=== PATIENT | male | born 1945 | race Caucasian/White ===

== ENCOUNTER 2020-01-09 04:53 | Inpatient (IN) ==
--- NOTE | 2019-12-25 15:06 | PAT Medication Instructions ---
Medication Instructions Date of Service December 25, 2019 Home Medications Medications amlodipine 5 mg tablet 5 mg PO HS ascorbate calcium (vitamin C) 500 mg tablet 500 mg PO BID aspirin 81 mg tablet,delayed release 81 mg PO HS atorvastatin 10 mg tablet 10 mg PO 3XWK cinnamon bark 500 mg capsule 1,500 mg PO BID coenzyme Q10 100 mg capsule 100 mg PO QAM glucosamine sulfate 500 mg tablet 500 mg PO BID insulin glargine 100 unit/mL (3 mL) subcutaneous pen 35 units SQ BID magnesium 250 mg tablet 250 mg PO BID melatonin 5 mg capsule 10 mg PO HS metformin 500 mg tablet,extended release 24 hr 500 mg PO BID metoprolol succinate 50 mg tablet,extended release 24 hr 50 mg PO BID mometasone 0.1 % topical cream 1 appln TOP BID PRN multivitamin with minerals 1 tab PO BID omega-3 acid ethyl esters 1 gram capsule 4 cap PO DAILY tamsulosin 0.4 mg capsule 0.4 mg PO QPM turmeric 400 mg capsule 400 mg PO DAILY PRN vitamin E (dl, acetate) 400 unit capsule 400 units PO BID Lactobacillus acidophilus [Acidophilus] 1 tab PO DAILY alum-mag hydroxide-simeth [Mylanta Maximum Strength] 10 ml PO HS PRN coconut oil 2,000 mg PO BID cranberry 500 mg PO BID famotidine 20 mg PO DAILY PRN hydrochlorothiazide 12.5 mg PO QAM qkgldp-qenhntew-sbjybox [Creon] 2 - 3 cap PO UD PRN qqvhdv-cvhwbcxr-yhzictz [Creon] 3 - 4 cap PO TID losartan 25 mg PO QAM multivitamin 1 tab PO QAM potassium gluconate 595 mg PO BID psyllium husk [Metamucil] 3.2 g PO BID vitamin B complex 1 tab PO BID STOP taking 2 weeks before surgery coconut oil 2,000 mg PO BID cranberry 500 mg PO BID turmeric 400 mg capsule 400 mg PO DAILY PRN vitamin E (dl, acetate) 400 unit capsule 400 units PO BID omega-3 acid ethyl esters 1 gram capsule 4 cap PO DAILY cinnamon bark 500 mg capsule 1,500 mg PO BID coenzyme Q10 100 mg capsule 100 mg PO QAM glucosamine sulfate 500 mg tablet 500 mg PO BID STOP taking 24 hours before surgery mometasone 0.1 % topical cream 1 appln TOP BID PRN DO NOT take the morning of surgery multivitamin 1 tab PO QAM potassium gluconate 595 mg PO BID psyllium husk [Metamucil] 3.2 g PO BID vitamin B complex 1 tab PO BID losartan 25 mg PO QAM hydrochlorothiazide 12.5 mg PO QAM rhaxsf-uscjmlyp-efoxxdf [Creon] 2 - 3 cap PO UD PRN qdyaxe-guatltkn-gtpqqjj [Creon] 3 - 4 cap PO TID Lactobacillus acidophilus [Acidophilus] 1 tab PO DAILY multivitamin with minerals 1 tab PO BID metformin 500 mg tablet,extended release 24 hr 500 mg PO BID magnesium 250 mg tablet 250 mg PO BID ascorbate calcium (vitamin C) 500 mg tablet 500 mg PO BID Take morning of surgery With a small sip of water, OTHERWISE NOTHING TO EAT OR DRINK AFTER MIDNIGHT: famotidine 20 mg PO DAILY PRN metoprolol succinate 50 mg tablet,extended release 24 hr 50 mg PO BID Take evening before surgery alum-mag hydroxide-simeth [Mylanta Maximum Strength] 10 ml PO HS PRN kdthug-nifmybsa-bogeutc [Creon] 3 - 4 cap PO TID potassium gluconate 595 mg PO BID psyllium husk [Metamucil] 3.2 g PO BID vitamin B complex 1 tab PO BID tamsulosin 0.4 mg capsule 0.4 mg PO QPM multivitamin with minerals 1 tab PO BID metoprolol succinate 50 mg tablet,extended release 24 hr 50 mg PO BID metformin 500 mg tablet,extended release 24 hr 500 mg PO BID magnesium 250 mg tablet 250 mg PO BID melatonin 5 mg capsule 10 mg PO HS insulin glargine 100 unit/mL (3 mL) subcutaneous pen 35 units SQ BID atorvastatin 10 mg tablet 10 mg PO 3XWK aspirin 81 mg tablet,delayed release 81 mg PO HS amlodipine 5 mg tablet 5 mg PO HS ascorbate calcium (vitamin C) 500 mg tablet 500 mg PO BID Insulin Dependent Diabetic Patients * Test your blood sugar the morning of surgery * If Blood Sugar is GREATER THAN 150, take HALF of your regular dose of: insulin glargine 100 unit/mL (3 mL) subcutaneous pen (17 units) * If Blood Sugar is LESS THAN 150, DO NOT TAKE ANY: insulin glargine 100 unit/mL (3 mL) subcutaneous pen * Other Notes If you have any questions please call us at [phone] or [phone] or [phone] or [phone]
--- NOTE | 2019-12-26 09:33 | Anesthesiology Consultation ---
Date of Service December 26, 2019 Assessment & Plan (1) Encounter for pre-operative examination: Chart Review Chart Review: Pending: Refer to Additional Notes / Consult section (PCP response to preop labs ) and Patient seen in Pre Admission Testing Cardio note- 09/18/19= Results of stress test reviewed. "I see no cardiac contraindications to proceeding on with planned right hip replacement. I would recommend perioperative cardiac monitoring." Pt should take Toprol XL AM of surgery Anemia and mildly elevated INR (not on blood thinners) noted on pre op labs. Note sent to PCP- awaiting response History Surgery Operation Date: 01/09/20 12:45 Proposed Procedures p Right Total Hip Arthroplasty - Jose Vences MD Height/Weight Height: 5 ft 11 in Weight: 117.1 kg Allergies Allergy/AdvReac Type Severity Reaction Status Date / Time Penicillins Allergy Unknown UNKNOWN - Verified 12/19/19 14:07 as a child Medications Home Medications Medication Instructions Recorded Confirmed Last Taken amlodipine 5 mg tablet 5 mg PO HS 12/13/19 12/19/19 Unknown ascorbate calcium (vitamin C) 500 500 mg PO BID 12/13/19 12/19/19 Unknown mg tablet aspirin 81 mg tablet,delayed 81 mg PO HS 12/13/19 12/19/19 Unknown release atorvastatin 10 mg tablet 10 mg PO 3XWK 12/13/19 12/19/19 Unknown blood-glucose meter #1 ea 12/13/19 12/13/19 Unknown cinnamon bark 500 mg capsule 1,500 mg PO BID 12/13/19 12/19/19 Unknown coenzyme Q10 100 mg capsule 100 mg PO QAM 12/13/19 12/19/19 Unknown glucosamine sulfate 500 mg tablet 500 mg PO BID 12/13/19 12/19/19 Unknown insulin glargine 100 unit/mL (3 35 units SQ BID ml 12/13/19 12/19/19 Unknown mL) subcutaneous pen magnesium 250 mg tablet 250 mg PO BID tab 12/13/19 12/19/19 Unknown melatonin 5 mg capsule 10 mg PO HS cap 12/13/19 12/19/19 Unknown metformin 500 mg tablet,extended 500 mg PO BID 12/13/19 12/19/19 Unknown release 24 hr metoprolol succinate 50 mg 50 mg PO BID 12/13/19 12/19/19 Unknown tablet,extended release 24 hr mometasone 0.1 % topical cream 1 appln TOP BID PRN gm 12/13/19 12/19/19 Unknown multivitamin with minerals 1 tab PO BID tab 12/13/19 12/19/19 Unknown omega-3 acid ethyl esters 1 gram 4 cap PO DAILY cap 12/13/19 12/19/19 Unknown capsule tamsulosin 0.4 mg capsule 0.4 mg PO QPM cap 12/13/19 12/19/19 Unknown turmeric 400 mg capsule 400 mg PO DAILY PRN cap 12/13/19 12/19/19 Unknown vitamin E (dl, acetate) 400 unit 400 units PO BID cap 12/13/19 12/19/19 Unknown capsule Lactobacillus acidophilus 1 tab PO DAILY 12/19/19 12/19/19 Unknown [Acidophilus] alum-mag hydroxide-simeth [Mylanta 10 ml PO HS PRN 12/19/19 12/19/19 Unknown Maximum Strength] coconut oil 2,000 mg PO BID 12/19/19 12/19/19 Unknown cranberry 500 mg PO BID 12/19/19 12/19/19 Unknown famotidine 20 mg PO DAILY PRN 12/19/19 12/19/19 Unknown hydrochlorothiazide 12.5 mg PO QAM 12/19/19 12/19/19 Unknown xjyflz-rerefhnf-vutpzzd [Creon] 2 - 3 cap PO UD PRN 12/19/19 12/19/19 Unknown ytfgxd-mjpbclhh-nycjzql [Creon] 3 - 4 cap PO TIDM 12/19/19 12/19/19 Unknown losartan 25 mg PO QAM 12/19/19 12/19/19 Unknown multivitamin 1 tab PO QAM 12/19/19 12/19/19 Unknown potassium gluconate 595 mg PO BID 12/19/19 12/19/19 Unknown psyllium husk [Metamucil] 3.2 g PO BID 12/19/19 12/19/19 Unknown vitamin B complex 1 tab PO BID 12/19/19 12/19/19 Unknown Past Medical History Medical History (Updated 12/26/19 @ 10:14 by Missy Sewell PA-C) BPH (benign prostatic hyperplasia) CKD (chronic kidney disease) stage 3, GFR 30-59 ml/min Mild Diabetes mellitus, type 2 since Whipple procedure- glucose controlled- Hgb A1C 7.1 (11/13/19) GERD (gastroesophageal reflux disease) CONTROLLED WITH PEPCID Hx of brachytherapy Hyperlipidemia Hypertension Obesity Osteoarthritis Pancreatic cancer 2009- S/P WHIPPLE PROCEDURE- S/P CHEMO AND XRT- NO CURRENT ISSUES- FOLLOWS WITH HEME Prostate cancer s/P BRACHYTHERAPY 11/2018 (per records) Renal cyst Pt has no recollection of dx details Sleep apnea hx -- no problems since weightloss. Exercise / Class Metabolic Activity III < 4 Walking/Shop/Light housework (LIMITED ACTIVITY SECONDARY TO HIP PAIN- AMBULATES WITH WALKER- NO SOB OR CHEST PAIN ) Past Family History Family History Other Cancer Diabetes Hypertension No family history of adverse response to anesthesia Past Surgical History Surgical History (Updated 12/26/19 @ 10:14 by Missy Sewell PA-C) H/O hernia repair multiple hernia surgeries with mesh. History of appendectomy History of cardiac cath nonobstructive CAD- 1996 (per cardio note) History of cholecystectomy History of colonoscopy History of endoscopic sinus surgery History of ERCP History of esophagogastroduodenoscopy (EGD) History of pancreatic surgery Whipple procedure History of tonsillectomy History of vascular access device Port placement for chemo Past Anesthesia History No Hx of Anesthesia Complications and No Family Hx of Anesthesia Complications History of PONV No Hx of PONV and Hx of Motion Sickness (NOTED WITH AMUSEMENT RIDES ) Social History Smoking Status: Never smoker Do You Dip or Chew Tobacco: No Hx Alcohol Use: No Hx Substance Use: No substance use type: does not use Review of Systems Patient denies chest pain, shortness of breath, dyspnea on exertion, reflux, cough, wheezing, palpitations. Mild nasal congestion and sinus pressure for past several months- occ use of nasal spray- symptoms currently controlled and stable Hx of blood transfusion with chemo in 2010 Physical Exam Vital Signs VITALS BP 145/81 P 64 TEMP 97.6 SP02 98% RESP 16 Constitutional no acute distress ENMT Mouth: no TMJ abnormality Thyromental Distance: > or= 3.5 Finger Breadths (3.5) Mallampati Class: II Mouth / Teeth: 1. Missing 2. Missing 3. Missing 4. Missing Chipped molar Neck neck extension not limited Respiratory normal respiratory effort; no respiratory distress Auscultation: lungs clear to auscultation bilaterally; no wheezes Cardiovascular Rate/Rhythm: regular rate and regular rhythm Vessels: no carotid bruit Musculoskeletal Spine: no pain with cervical ROM Neurologic moves all extremities Psychiatric Orientation: alert Testing Laboratory Results 12/26/19 09:56 12/26/19 09:56 PT 11.8 Seconds (9.0-12.0) 12/26/19 09:56 INR 1.2 (0.9-1.1) H 12/26/19 09:56 APTT 30.8 Seconds (21.0-31.0) 12/26/19 09:56 Blood Type A Positive 12/26/19 09:56 Antibody Screen NEGATIVE 12/26/19 09:56 Electrocardiogram Date: 07/25/19 Findings: + NSR @ (72) Septal infarct: age undetermined (pt had subsequent ECHO and stress test with no signs of ischemia) Chest X-Ray Date: 12/26/19 Findings: + NAD Echocardiogram Date: 07/26/19 EF: 55% LV Function: normal RWMA: + none Four chamber cardiac dilation. Borderline dilation of ascending aorta at 4cm. +LVH. Mild MV, PV, TV insufficiency. Perhaps mild pulm HTN - pulm artery pressure estimated at 36mmHg. Stress Test Date: 09/18/19 Type: nuclear (lexiscan ) Normal myocardial perfusion without evidence of induced ischemia. Normal wall motion and thickening. Normal LV EF post stress 59%
--- NOTE | 2019-12-26 10:37 | XRay Report ---
XR chest Pre-admission PA/Lat CLINICAL HISTORY: pat preoperative evaluation COMPARISON STUDY: No previous studies for comparison. FINDINGS: The bones soft tissues and hemidiaphragms are normal. The cardiomediastinal silhouette is n ormal. The lungs are clear. The pulmonary vasculature is normal. IMPRESSION: Negative chest. ACT 112: Negative or not required by law. The above report was generated using voice recognition software. It may contain grammatical, syntax or spelling errors. Electronically signed by: Adelfo Christensen M.D. 12/26/2019 10:36 AM
[2019-12-26 11:10] LABS: INR 1.2 (0.9-1.1); Partial Thromboplastin Ratio 1.1; Partial Thromboplastin Time 30.8 Seconds (21.0-31.0); Prothrombin Time 11.8 Seconds (9.0-12.0)
[2019-12-26 11:50] LABS: Basophils # (auto) 0.03 K/uL (0-0.2); Basophils % (auto) 0.6 %; Eosinophils # (auto) 0.19 K/uL (0-0.5); Eosinophils % (auto) 4.1 %; Hematocrit (blood only) 32.8 % (42-52); Hemoglobin 11.1 g/dL (14.0-18.0); Immature Granulocytes # (auto) 0.02 K/uL (0.00-0.02); Immature Granulocytes % (auto) 0.4 %; Lymphocytes # (auto) 1.02 K/uL (1.2-3.4); Lymphocytes % (auto) 21.8 %; Mean Corpuscular Hemoglobin 30.2 pg (25-34); Mean Corpuscular Hgb Conc 33.8 g/dL (32-36); Mean Corpuscular Volume 89.1 fL (80-100); Mean Platelet Volume 9.9 fL (7.4-10.4); Monocytes # (auto) 0.48 K/uL (0.11-0.59); Monocytes % (auto) 10.3 %; Neutrophils # (auto) 2.94 K/uL (1.4-6.5); Neutrophils % (auto) 62.8 %; Platelet Count 146 K/uL (130-400); RDW Coefficient of Variation 13.1 % (11.5-14.5); RDW Standard Deviation 42.8 fL (36.4-46.3); Red Blood Count 3.68 M/uL (4.7-6.1); White Blood Count 4.68 K/uL (4.8-10.8)
[2019-12-26 11:58] LABS: BUN Creatinine Ratio 25.5 (10-20); Calcium 9.4 mg/dl (8.5-10.1); Creatinine Clr Calc Pharmacy 65.9 ml/min; Est GFR (African American) 64.2; Est GFR (Non-African American) 55.4; Potassium 4.5 mmol/L (3.5-5.1)
[2020-01-09] MEDS ORDERED: GABAPENTIN 300 MG CAP PO SCH (06:00)
[2020-01-09] MEDS ORDERED: ACETAMINOPHEN 500 MG TAB PO SCH (06:00)
[2020-01-09] MEDS ORDERED: FAMOTIDINE 20 MG TAB PO SCH (06:00)
[2020-01-09] MEDS ORDERED: METOCLOPRAMIDE HCL 10 MG TABLET PO SCH (06:00)
[2020-01-09] MEDS ORDERED: BUPIVACAINE LIPOSOME/PF 266 MG, BUPIVACAINE/EPINEPHRINE 50 ML, SODIUM CHLORIDE 0.9% 30 ... INFIL SCH (06:00)
[2020-01-09] MEDS ORDERED: TRANEXAMIC ACID 1,000 MG **IV Pre-op IV SCH (06:00)
[2020-01-09] MEDS ORDERED: LR 60ML/HR IV SCH (06:00)
[2020-01-09] MEDS ORDERED: CEFAZOLIN 2000MG 2,000 MG/15 ML SYR IV SCH (06:00)
[2020-01-09] MEDS ORDERED: LR 500ML BOLUS, THEN 15ML/HR IV SCH (06:00)
[2020-01-09] MEDS ORDERED: BUPIVACAINE 0.5 % 5 MG/1 ML PF 10ML VIAL ONE (06:26)
[2020-01-09] MEDS ORDERED: BUPIVACAINE/EPINEPHRINE 0.5% MPF 1:200,000 10 ML VIAL ONE (06:37)
[2020-01-09] MEDS ORDERED: BACITRACIN INJ 50,000 UNIT VIAL ONE (06:37)
[2020-01-09] MEDS ORDERED: MoRPHine SULFATE PF 1 MG/ML 10 ML AMP/VIAL ONE (06:42)
[2020-01-09] MEDS ORDERED: LIDOCAINE HCL 2% 2 ML VIAL/AMP(20MG/ML) INFIL ONE (06:42)
[2020-01-09] MEDS ORDERED: PROPOFOL IV EMULSION 10 MG/ML 20 ML VIAL IV ONE (06:42)
[2020-01-09] MEDS ORDERED: MIDAZOLAM HCL 1 MG/ML 2ML VIAL ONE (06:42)
--- NOTE | 2020-01-09 06:56 | History & Physical Bridge Note ---
Date of Service January 09, 2020 History & Physical Bridge Note I have examined the patient, reviewed the History & Physical and in the interval since the performance of the History & Physical I have noted the following changes of clinical significance: no changes noted
[2020-01-09] MEDS ORDERED: NALBUPHINE HCL INJ 10 MG/ML AMP IV PRN (07:14)
[2020-01-09] MEDS ORDERED: NALOXONE HCL 1 MG in SODIUM CHLORIDE 0.9% 1000ML 1,000 ML IV PRN (07:14)
[2020-01-09] MEDS ORDERED: DiphenhydrAMINE HCL 50 MG/ML VIAL IV PRN (07:14)
[2020-01-09] MEDS ORDERED: ePHEDrine sulfate 50 MG/ML AMP IV PRN (07:14)
[2020-01-09] MEDS ORDERED: ONDANSETRON INJ 2 MG/ML 2 ML VIAL IV PRN (07:14)
[2020-01-09] MEDS ORDERED: NALOXONE HCL 0.4 MG/1 ML VIAL/CARP IV PRN ×2 (07:14→09:32)
[2020-01-09] MEDS ORDERED: MoRPHine SULFATE PF 1 MG/ML 10 ML AMP/VIAL INT SPINAL ONE (07:14)
[2020-01-09] MEDS ORDERED: NALOXONE HCL 0.08 MG in SYRINGE 1.8 ML IV PRN (07:14)
[2020-01-09] MEDS ORDERED: LACTATED RINGER'S 500 ML IV PRN (07:14)
[2020-01-09] MEDS ORDERED: SODIUM CHLORIDE 0.9% 1000ML 1,000 ML IV SCH (07:15)
[2020-01-09] MEDS ORDERED: DC INTRASPINAL MORPHINE SCH (07:15)
[2020-01-09] MEDS ORDERED: NO NARCOTICS OR SEDATIVES SCH (07:15)
[2020-01-09] MEDS ORDERED: ePHEDrine sulfate 50 MG/ML SYR ONE (07:47)
[2020-01-09] MEDS ORDERED: PHENYLEPHRINE 100MCG/ML 5ML SYR ONE (07:47)
[2020-01-09] MEDS ORDERED: PHENYLEPHRINE HCL 10 MG/ML VIAL ONE (08:04)
--- NOTE | 2020-01-09 08:35 | Post Operative Brief Note ---
PG Immediate Post Op with CF Date of Surgery January 09, 2020 Pre & Post Diagnosis Operation Date: 01/09/20 07:00 Pre-Op Diagnosis: Right Hip Advanced Degenerative Joint Disease Post-Op Diagnosis: Right Hip Advanced Degenerative Joint Disease I identified the patient and participated in the time-out.: Yes Procedure Operation Date: 01/09/20 07:00 Actual Procedures p Right Total Hip Arthroplasty--Uncemented(Right) - Jose Vences MD Surgeon Jose Vences MD German Tutor Johanna, PAC Estimated Blood Loss 200 Findings Consistent with Post-Op Diagnosis Fluids 1300 cc Specimens Specimen Description: A. Right Femoral Head Drains Torres Catheter (A 16 Occitan torres catheter was inserted by OSMANY Jimenes, without difficulty, clear yellow urine obtained, output to be monitored by Anesthesia.) Anesthesia Type Spinal MAC Complications none Disposition Accompanied Patient To Recovery: Yes Disposition: Recovery Room
--- NOTE | 2020-01-09 09:19 | Anesthesiology Progress Note ---
Date of Service January 09, 2020 Anesthesia Post Procedure Vital Signs Vital Signs: Temp Pulse Pulse Resp BP Pulse Ox 01/09/20 09:05 36.6 C 65 12 110/61 98 01/09/20 08:55 68 19 114/65 93 01/09/20 08:45 66 18 111/68 95 01/09/20 08:36 36.4 C L 76 20 108/69 96 01/09/20 05:36 36.6 C 68 20 163/91 H 97 Pain Intensity Right Hip: Pain Intensity: 0 Transfer of Care Handoff Completed per policy Notes Mental Status: alert / awake / arousable and participated in evaluation Patient Amnestic to Procedure: Yes Nausea / Vomiting: adequately controlled Pain: adequately controlled Airway Patency, RR, SpO2: stable & adequate BP & HR: stable & adequate Hydration State: stable & adequate Neuraxial Anesthesia: was administered and sensory block is resolving Anesthetic Complications: no major complications apparent and Pt Satisfied with anesthetic care
[2020-01-09] MEDS ORDERED: NON-FORMULARY MEDICATION (Turmeric 400 MG) PO PRN (09:32)
[2020-01-09] MEDS ORDERED: bisacodyL 10 MG SUPP PR PRN (09:32)
[2020-01-09] MEDS ORDERED: GLUCAGON FOR INJ 1 MG VIAL SQ PRN (09:32)
[2020-01-09] MEDS ORDERED: METOCLOPRAMIDE HCL INJ 5 MG/ML 2 ML VIAL IV PRN (09:32)
[2020-01-09] MEDS ORDERED: MAGNESIUM HYDROXIDE SUSP 30 ML UDC PO PRN (09:32)
[2020-01-09] MEDS ORDERED: BLOOD GLUCOSE METER SCH (09:32)
[2020-01-09] MEDS ORDERED: ALUMINUM/MAGNESIUM/SIMETH (MAALOX MAX) 30 ML UDC PO PRN (09:32)
[2020-01-09] MEDS ORDERED: GLUCOSE 40% GEL 15 GM TUBE PO PRN (09:32)
[2020-01-09] MEDS ORDERED: MULTIVITAMIN TAB PO SCH (09:32)
[2020-01-09] MEDS ORDERED: CARBOHYDRATES FOR HYPOGLYCEMIA PO PRN (09:32)
[2020-01-09] MEDS ORDERED: ALUMINUM/MAGNESIUM SUSP 30 ML UDC PO PRN (09:32)
[2020-01-09] MEDS ORDERED: NON-FORMULARY MEDICATION (Ascorbate Calcium (Vitamin C) 500 MG) PO SCH (09:32)
[2020-01-09] MEDS ORDERED: DEXTROSE 50% 50 ML SYRINGE IV PRN (09:32)
[2020-01-09] MEDS ORDERED: COCONUT OIL 2000 MG PO SCH (09:32)
[2020-01-09] MEDS ORDERED: NON-FORMULARY MEDICATION (Cranberry 500 MG) PO SCH (09:32)
[2020-01-09] MEDS ORDERED: MOMETASONE FUROATE 0.1% CR 15 GM TUBE EXT PRN (09:32)
[2020-01-09] MEDS ORDERED: FAMOTIDINE 20 MG TAB PO PRN (09:32)
[2020-01-09] MEDS ORDERED: NON-FORMULARY MEDICATION (Cinnamon Bark [Cinnamon] 1,500 MG) PO SCH (09:32)
[2020-01-09] MEDS ORDERED: INSULIN GLARGINE SOLOSTAR 100 UNITS/ML 3 ML PEN SQ SCH (09:32)
[2020-01-09] MEDS ORDERED: GLUCOSE 10 TABS/TUBE PO PRN (09:32)
[2020-01-09] MEDS ORDERED: NON-FORMULARY MEDICATION (Potassium Gluconate 595 MG) PO SCH (09:32)
[2020-01-09] MEDS ORDERED: NON-FORMULARY MEDICATION (Coenzyme Q10 [Co Q-10] 100 MG) PO SCH (09:32)
--- NOTE | 2020-01-09 09:33 | XRay Report ---
XR hip 1V RT w pelvis HISTORY: 74 years-old Male IN PACU - A/P PELVIS and LATERAL HIP right hip total joint arthroplasty COMPARISON: Pelvis and hip radiographs 05/02/2018 TECHNIQUE: AP view of the pelvis with crosstable lateral view of the right hip FINDINGS: Right hip total joint arthroplasty demonstrates satisfactory alignment. No acute fracture or retained foreign body. Lateral skin preston are noted along with expected postsurgical soft tissue swelling a nd deep tissue air. Brachytherapy seeds of the prostate. Arterial calcifications. IMPRESSION: Satisfactory alignment of the right hip total joint arthroplasty with expected postoperat del findings. ACT 112: Negative or not required by law. The above report was generated using voice recognition software. It may contain grammatical, syntax o r spelling errors. Electronically signed by: Quinn Wheeler M.D. 01/09/2020 9:32 AM
[2020-01-09] MEDS ORDERED: PNEUMOCOCCAL ADMINISTRATION CHARGE ONE (10:08)
[2020-01-09] MEDS ORDERED: PNEUMOCOCCAL POLYSACCHARIDES 25 MCG/0.5 ML VIAL/SYR IM ONE (10:08)
[2020-01-09] MEDS ORDERED: PHARMACY GLYCEMIC MGMT CONSULT PRN (10:17)
[2020-01-09] MEDS: LACTOBACILLUS ACIDOPHILUS (FLORANEX) TAB PO SCH (10:43)
[2020-01-09] MEDS: hydroCHLOROthiazide 25 MG TAB PO SCH (10:45)
[2020-01-09] MEDS: CHOLECALCIFEROL 1,000 UNITS 25 MCG TAB PO SCH ×2 (10:45→21:01)
[2020-01-09] MEDS: PANCREAZE (LIPASE 10,500U) CAP PO SCH ×3 (10:45→17:40)
[2020-01-09] MEDS: MULTIVITAMIN TAB PO SCH (10:45)
[2020-01-09] MEDS: MAGNESIUM OXIDE 400 MG TAB PO SCH ×2 (10:45→21:01)
[2020-01-09] MEDS: LOSARTAN POTASSIUM 25 MG TAB PO SCH (10:45)
[2020-01-09] MEDS: ASPIRIN 81 MG ECTAB PO SCH ×2 (10:45→21:00)
[2020-01-09] MEDS: DOCUSATE SODIUM 100 MG CAP PO SCH ×2 (10:46→21:00)
[2020-01-09] MEDS: ATORVASTATIN 10 MG TAB PO SCH (10:46)
[2020-01-09] MEDS: VITAMIN B COMPLEX TAB PO SCH ×2 (10:46→21:01)
[2020-01-09] MEDS: METOPROLOL SUCC 50MG EXT REL TAB PO SCH ×2 (10:46→21:01)
[2020-01-09] MEDS: TOCOPHERYL, DL-ALPHA 400 UNITS CAP PO SCH ×2 (10:46→21:02)
--- NOTE | 2020-01-09 11:59 | Pharmacy Report ---
Glycemic Control Consultation - Date of Service January 09, 2020 - Scope Scope: Glycemic Pharmacist consulted by Dr Vences on 01/09 for glycemic control and to write orders per [facility] inpatient glycemic control protocol - Objective Weight: 115.258 kg Accuchecks BSG (last 24hrs): 01/09/20 01/09/20 05:14 08:42 POC Glucose 111 H 171 H - Recent Pertinent Medications Outpatient Anti-diabetic Regimen: * Lantus 35 units BID, metformin * A1c = ordered for 01/10 Risk Factors for Insulin Resistance: * Recent Surgery: POD 0 * Diet: T2DM - Assessment & Plan Assessment & Plan: ASSESSMENT: * 74 year old male now s/p hip arthroplasty - Type 2 diabetic managed on Lantus and metformin at home * Pharmacy consulted for glycemic management / diet ordered postop * BSG 171 mg/dL - however patient already eating breakfast when blood sugar collected. Talked with RN and will only cover carbs. Lunchtime BSG check likely falsely elevated d/t patient eating therefore plan to cover only carbs at that time as well * Patient on heavily basal dose of insulin outpatient will decrease and will plan to split insulin dosing with basal/bolus insulin PLAN FOR INPATIENT GLYCEMIC CONTROL: * Holding outpatient oral diabetes medications * Basal insulin * Lantus 25 x 1 with lunch * Lantus HS with scale - 15-25 units per scale * Bolus insulin * NovoLog per scale ACHS or Q6hrs while NPO * Goal Range: Low 110 mg/dL - High 140 mg/dL * Correction Factor: 20 mg/dL/unit * Nutritional / Prandial insulin per carb ratio of 1 unit per 6 grams CHO consumed * Please note that the plan above was derived based on current level of insulin resistance and hospital stress. These recommendations are appropriate for inpatient admission only. Plan of care upon discharge will need to be reassessed to avoid potential outpatient hypo/hyperglycemia. Thank you.
[2020-01-09] MEDS ORDERED: INSULIN GLARGINE SOLOSTAR 100 UNITS/ML 3 ML PEN SQ ONE ×2 (12:00→12:30)
[2020-01-09] MEDS: INSULIN ASPART 100 UNITS/ML 3 ML PEN SC SCH ×3 (12:47→21:07)
[2020-01-09] MEDS: SODIUM CHLORIDE 0.9% 1000ML 1,000 ML IV SCH ×2 (13:34→20:45)
[2020-01-09] MEDS: ACETAMINOPHEN 500 MG TAB PO SCH ×2 (13:35→21:02)
[2020-01-09] MEDS ORDERED: TRANEXAMIC ACID / 0.7% NACL 1,000 MG/100 ML BAG IV SCH (14:40)
[2020-01-09] MEDS: CEFAZOLIN 2000MG 2,000 MG/15 ML SYR IV SCH ×2 (14:42→22:30)
[2020-01-09] MEDS: FERROUS GLUCONATE 324 MG TAB PO SCH (17:40)
[2020-01-09] MEDS: ASCORBIC ACID 500 MG TAB PO SCH (17:40)
--- NOTE | 2020-01-09 18:33 | Operative Report ---
Post Operative Report Pre & Post Diagnosis Operation Date: 01/09/20 07:00 Pre-Op Diagnosis: Right Hip Advanced Degenerative Joint Disease Post-Op Diagnosis: Right Hip Advanced Degenerative Joint Disease I identified the patient and participated in the time-out.: Yes Procedure Operation Date: 01/09/20 07:00 Actual Procedures p Right Total Hip Arthroplasty--Uncemented(Right) - Jose Vences MD Surgeon Jose Vences MD Patrol Driver Johanna, PAC Estimated Blood Loss 200 Findings Consistent with Post-Op Diagnosis Operative findings revealed advanced right hip DJD with extensive grade 4 qhgv-mm-qjio disease of the femoral head and acetabulum. He had a large medial osteophyte as well as large anterior acetabular osteophytes. He had a large hip joint effusion. Fluids 1300 cc. Specimens Right femoral head sent for pathology. Drains None. Anesthesia Type Spinal MAC Complications none Disposition Accompanied Patient To Recovery: Yes Disposition: Recovery Room Indications Patient is 74-year-old gentleman who is had a long history of right hip pain discomfort is gradually gotten worse over time. It is gotten to the point where he said use a walker to get around. X-rays revealed advanced right hip DJD. Patient elected C with total hip arthroplasty. Description of Procedure Operative implants consist of: 1. Biomet G7 size 58 mm acetabular shell. 2. 6.5 cancellus acetabular screws 1 of 35 mm length and 1 of 30 mm 9. 3. [place] hole eliminator. 4. Highly cross-linked polyethylene liner with a 58 mm outer diameter and 40 mm inner diameter. 5. Sarah Corail size 10 KLA femoral stem. 6. +8.5/40 mm ceramic articular ball. Patient was taken to the operating room identified and placed in the operating table supine position protectors were properly padded. IV antibiotics were provided by anesthesia team. A spinal anesthetic had been implemented in the holding area. Kraft catheter was placed in sterile fashion. The patient then placed in the left lateral decubitus position. An axillary roll was placed Stberg hip positioner was used for positioning. The right hip and leg were then prepped and draped in the usual sterile fashion. A posterior lateral approach to the right hip was then performed to a cu rvilinear incision centered over the greater trochanter. Sharp lysis got through subcutaneous tissue down below the IT band gluteal fascia. The IT band gluteal fascia incised longitudinally in line with skin incision. The underlying greater bursa was excised. The piriformis and external rotators were tagged and taken off the posterior aspect of the hip joint capsule. Great care was taken throughout the procedure to protect the sciatic nerve at all times. Posterior capsulotomy was then performed leaving a large flap for later repair. Hip was internally rotated and dislocated. Femoral neck osteotomy cut was made with Final Cut about a centimeter above the lesser trochanter. Femoral head was removed and sent for pathology. The femur was retracted anteriorly. Attention drawn the acetabulum. The acetabular labrum was excised. The pulmonary fat was excised with sequential reaming the acetabular was then performed begin the size 49 and progressing up to 57. I did open the entrance with a 58 reamer and then placed a 58 mm Biomet G7 acetabular shell with about 40 degrees lateral opening and 20 degrees of anteversion. It was fixed with two 6.5 cancellus acetabular screws. A large anterior osteophyte was removed. A trial liner was placed. Attention drawn to the femur. The proximal femur was entered with a cookie-cutter followed by canal finder. I then broached beginning with size 8 and progressing up to a 10. His canal was pretty narrow distally. He had excellent cancellus bone with excellent cancellus support so we stopped at the tendon. The calcar reamer was used to smooth off the calcar. The hip was then trialed. The +8.5 articular ball provide full stability in full extension and external rotation flexion 10 9 degrees and internal rotation over 50 degrees. I did elect to place the largest had possible along with the posterior lip in order to maximize his stability and the limit his risk for dislocation. We elect to place these implants. All trial implants were removed. An apex hole limited was placed but highly cross-link polyethylene liner was placed with a eli placed inferior and posterior. A size 10 KLA femoral stem was impacted in position and a +8.5/40 mm ceramic articular ball was placed. Hip was located once again found to be stable. Attention drawn toward closing. The wounds irrigated cups out to pulsatile lavage solution. I did inject locally with 60 cc of half percent Marcaine with epinephrine. Patient did receive 1 g of tranexamic acid at the beginning of the case. The posterior capsule and external rotators were then repaired through drill holes in the posterior trochanter with #2 Tycron suture. The IT band and gluteal fascia then closed with #1 PDS suture in running fashion. The subcutaneous tissue was then closed in 2 layers the deep layer #1 Vicryl suture and subcutaneous tissues with 2 Dexon suture in a buried interrupted fashion the skin was closed skin preston. Legs then cleaned dried and sterile dressing composed of Xeroform, 4 x 4's, ABD pad and foam tape was applied. Patient then transferred to the recovery room in stable condition. Patient tolerated procedure well no complications. I attest to the content of the Intraoperative Record and any orders documented therein. Any exceptions are noted below.
[2020-01-09] MEDS: MoRPHine SULFATE 2 MG/ML CARP IV PRN (20:45)
[2020-01-09] MEDS: PSYLLIUM 58.6% POWDER PACKET PO SCH (20:52)
[2020-01-09] MEDS: SENNA 8.6 MG TAB PO SCH (20:54)
[2020-01-09] MEDS: TAMSULOSIN HCL 0.4 MG CAP PO SCH (21:00)
[2020-01-09] MEDS: AMLODIPINE BESYLATE 5 MG TAB PO SCH (21:01)
[2020-01-09] MEDS: INSULIN GLARGINE SOLOSTAR 100 UNITS/ML 3 ML PEN SQ SCH (21:06)
[2020-01-10] MEDS: MoRPHine SULFATE 2 MG/ML CARP IV PRN (00:17)
[2020-01-10] MEDS: INSULIN ASPART 100 UNITS/ML 3 ML PEN SC SCH ×6 (00:21→21:17)
[2020-01-10] MEDS ORDERED: ONDANSETRON INJ 2 MG/ML 2 ML VIAL IV PRN (01:16)
[2020-01-10] MEDS ORDERED: TRAMADOL HCL 50 MG TABLET PO PRN (01:16)
[2020-01-10] MEDS ORDERED: HYDROmorphone INJ 0.5 MG/0.5 ML SYR IV PRN (01:16)
[2020-01-10] MEDS: KETOROLAC TROMETHAMINE 15 MG/ML VIAL IV SCH ×4 (02:17→20:17)
[2020-01-10] MEDS: SODIUM CHLORIDE 0.9% 1000ML 1,000 ML IV SCH (03:20)
[2020-01-10 06:09] LABS: Basophils # (auto) 0.01 K/uL (0-0.2); Basophils % (auto) 0.2 %; Eosinophils # (auto) 0.21 K/uL (0-0.5); Hematocrit (blood only) 26.5 % (42-52); Hemoglobin 9.3 g/dL (14.0-18.0); Immature Granulocytes # (auto) 0.01 K/uL (0.00-0.02); Immature Granulocytes % (auto) 0.2 %; Lymphocytes # (auto) 0.75 K/uL (1.2-3.4); Lymphocytes % (auto) 14.3 %; Mean Corpuscular Hemoglobin 30.4 pg (25-34); Mean Corpuscular Hgb Conc 35.1 g/dL (32-36); Mean Corpuscular Volume 86.6 fL (80-100); Mean Platelet Volume 9.5 fL (7.4-10.4); Monocytes # (auto) 0.57 K/uL (0.11-0.59); Monocytes % (auto) 10.8 %; Neutrophils # (auto) 3.71 K/uL (1.4-6.5); Neutrophils % (auto) 70.5 %; Platelet Count 103 K/uL (130-400); RDW Coefficient of Variation 13.3 % (11.5-14.5); RDW Standard Deviation 41.8 fL (36.4-46.3); Red Blood Count 3.06 M/uL (4.7-6.1); White Blood Count 5.26 K/uL (4.8-10.8)
[2020-01-10] MEDS: ACETAMINOPHEN 500 MG TAB PO SCH ×3 (06:27→21:19)
[2020-01-10 06:43] LABS: BUN Creatinine Ratio 15.5 (10-20); Calcium 8.3 mg/dl (8.5-10.1); Creatinine Clr Calc Pharmacy 68.1 ml/min; Est GFR (African American) 67.5; Est GFR (Non-African American) 58.2; Potassium 4.1 mmol/L (3.5-5.1)
--- NOTE | 2020-01-10 07:23 | Orthopedic Progress Note ---
Date of Service January 10, 2020 Assessment & Plan (1) History of total right hip arthroplasty: He was seen by Dr. Vences today. Continue current pain management. DVT prophylaxis. PT/OT WBAT, total hip precautions. Discharge planning. Subjective POD #1 from Right [facility]. DOing pretty well. Not having much pain. He was up and ambulated some yesterday but felt weak. No chest pain or shortness of breath. Physical Exam Physical Exam: alert and oriented. NAD. We did wake him this am. Right leg is well aligned. NVI. Able to DF/PF Results & Data ([facility]) Vital Signs (Past 12 Hours) Vital Signs Temp Pulse Pulse Resp BP Pulse Ox 01/10/20 02:40 36.7 C 63 18 126/77 98 01/09/20 23:20 18 99 01/09/20 23:18 36.5 C 52 L 18 132/77 99 01/09/20 22:29 14 93 01/09/20 21:30 18 96 01/09/20 20:58 53 L 52 L 148/84 H 01/09/20 20:35 20 98 01/09/20 19:23 36.3 C L 58 L 20 164/85 H 98 01/09/20 19:21 20 99 PG Care Time/CCT Total # of Minutes Spent Total Time Spent with Patient: Total time spent is greater than 50% in coordination of care (as documented) at patient's floor/unit and/or counseling patient: Coding Level of Care Code None Diagnoses History of total right hip arthroplasty Z96.641
[2020-01-10] MEDS: TOCOPHERYL, DL-ALPHA 400 UNITS CAP PO SCH ×2 (08:51→20:17)
[2020-01-10] MEDS: hydroCHLOROthiazide 25 MG TAB PO SCH (08:51)
[2020-01-10] MEDS: OMEGA-3 (PURIFIED FISH OIL) 1 GM CAP PO SCH (08:52)
[2020-01-10] MEDS: PANCREAZE (LIPASE 10,500U) CAP PO SCH ×3 (08:52→17:43)
[2020-01-10] MEDS: VITAMIN B COMPLEX TAB PO SCH ×2 (08:52→20:17)
[2020-01-10] MEDS: MULTIVITAMIN TAB PO SCH (08:52)
[2020-01-10] MEDS: CHOLECALCIFEROL 1,000 UNITS 25 MCG TAB PO SCH ×2 (08:52→20:17)
[2020-01-10] MEDS: FERROUS GLUCONATE 324 MG TAB PO SCH ×2 (08:52→17:43)
[2020-01-10] MEDS: DOCUSATE SODIUM 100 MG CAP PO SCH ×2 (08:52→20:17)
[2020-01-10] MEDS: LACTOBACILLUS ACIDOPHILUS (FLORANEX) TAB PO SCH (08:52)
[2020-01-10] MEDS: METOPROLOL SUCC 50MG EXT REL TAB PO SCH ×2 (08:53→21:21)
[2020-01-10] MEDS: MAGNESIUM OXIDE 400 MG TAB PO SCH ×2 (08:53→20:17)
[2020-01-10] MEDS: PSYLLIUM 58.6% POWDER PACKET PO SCH ×2 (08:53→20:11)
[2020-01-10] MEDS: ASCORBIC ACID 500 MG TAB PO SCH ×2 (08:53→17:43)
[2020-01-10] MEDS: LOSARTAN POTASSIUM 25 MG TAB PO SCH (08:53)
[2020-01-10] MEDS: ASPIRIN 81 MG ECTAB PO SCH ×2 (08:53→20:17)
[2020-01-10] MEDS: INSULIN GLARGINE SOLOSTAR 100 UNITS/ML 3 ML PEN SQ SCH ×2 (08:54→21:16)
--- NOTE | 2020-01-10 09:32 | Anesthesiology Progress Note ---
Date of Service January 10, 2020 Anesthesia Post Procedure Vital Signs Vital Signs: Temp Pulse Pulse Resp BP Pulse Ox Pulse Ox 01/10/20 08:09 36.7 C 61 18 130/77 95 01/10/20 02:40 36.7 C 63 18 126/77 98 01/09/20 23:20 18 99 01/09/20 23:18 36.5 C 52 L 18 132/77 99 01/09/20 22:29 14 93 01/09/20 21:30 18 96 01/09/20 20:58 53 L 52 L 148/84 H 01/09/20 20:35 20 98 01/09/20 19:23 36.3 C L 58 L 20 164/85 H 98 01/09/20 19:21 20 99 01/09/20 18:26 20 97 01/09/20 17:30 20 97 01/09/20 16:31 18 93 01/09/20 15:27 36.4 C L 53 L 18 129/67 97 01/09/20 15:25 97 01/09/20 14:30 18 98 01/09/20 13:30 18 96 01/09/20 12:30 18 97 01/09/20 12:11 36.9 C 57 L 18 119/75 97 01/09/20 11:30 18 98 01/09/20 11:08 36.8 C 58 L 18 112/65 98 01/09/20 10:37 36.8 C 64 17 138/85 97 01/09/20 10:30 18 97 01/09/20 10:04 36.5 C 59 L 18 103/62 97 Pain Intensity Right Hip: Pain Intensity: 5 Notes Mental Status: alert / awake / arousable and participated in evaluation Patient Amnestic to Procedure: Yes Nausea / Vomiting: adequately controlled Pain: adequately controlled Airway Patency, RR, SpO2: stable & adequate BP & HR: stable & adequate Hydration State: stable & adequate Neuraxial Anesthesia: was administered and sensory block resolved Anesthetic Complications: no major complications apparent and Pt Satisfied with anesthetic care
--- NOTE | 2020-01-10 11:28 | Pharmacy Report ---
Pharmacy Glycemic Short Note 2 - Date of Service January 10, 2020 - Glycemic Short BSG Results (Last 24 hours): 01/09/20 01/09/20 01/09/20 12:23 17:08 20:48 Glucose POC Glucose 165 H 111 H 162 H 01/10/20 01/10/20 01/10/20 00:06 04:13 05:48 Glucose 93 POC Glucose 154 H 101 H 01/10/20 08:31 Glucose POC Glucose 110 H ASSESSMENT: 01/10: * Patient received total of 58 units of insulin yesterday, of which 45 were basal insulin * Fasting BSG 93 mg/dL - lower side of range ; will continue with Lantus scale BID however will scale back * Loosen CF/CR with lunch time check as BSGs trending down PLAN FOR INPATIENT GLYCEMIC CONTROL: * Hold outpatient oral diabetes medications * Basal insulin * Lantus BID per scale 10 units for BSG <110 15 units for BSG 110-160 20 units for BSG >160 * Bolus insulin - loosen * NovoLog per scale ACHS or Q6hrs while NPO * Goal Range: Low 110 mg/dL - High 140 mg/dL * Correction Factor: 25 mg/dL/unit * Nutritional / Prandial insulin per carb ratio of 1 unit per 8 grams CHO consumed PLAN FOR DISCHARGE: * A1C = 6.9% * Goal A1C <7 for most patient populations - would recommend continuation of outpatient diabetic regimen as long as patient not reporting low BSGs
[2020-01-10] MEDS: TAMSULOSIN HCL 0.4 MG CAP PO SCH (20:17)
[2020-01-10] MEDS: SENNA 8.6 MG TAB PO SCH (20:17)
[2020-01-10] MEDS: AMLODIPINE BESYLATE 5 MG TAB PO SCH (20:17)
[2020-01-11] MEDS: KETOROLAC TROMETHAMINE 15 MG/ML VIAL IV SCH ×2 (02:21→08:45)
[2020-01-11] MEDS: ACETAMINOPHEN 500 MG TAB PO SCH (05:14)
[2020-01-11 07:42] LABS: Basophils # (auto) 0.01 K/uL (0-0.2); Basophils % (auto) 0.1 %; Eosinophils # (auto) 0.34 K/uL (0-0.5); Eosinophils % (auto) 4.2 %; Hematocrit (blood only) 28.1 % (42-52); Hemoglobin 9.7 g/dL (14.0-18.0); Immature Granulocytes # (auto) 0.03 K/uL (0.00-0.02); Immature Granulocytes % (auto) 0.4 %; Lymphocytes % (auto) 12.4 %; Mean Corpuscular Hgb Conc 34.5 g/dL (32-36); Mean Platelet Volume 9.5 fL (7.4-10.4); Monocytes # (auto) 0.66 K/uL (0.11-0.59); Monocytes % (auto) 8.2 %; Neutrophils # (auto) 6.05 K/uL (1.4-6.5); Neutrophils % (auto) 74.7 %; Platelet Count 105 K/uL (130-400); RDW Coefficient of Variation 13.5 % (11.5-14.5); RDW Standard Deviation 42.6 fL (36.4-46.3); Red Blood Count 3.23 M/uL (4.7-6.1); White Blood Count 8.09 K/uL (4.8-10.8)
--- NOTE | 2020-01-11 08:10 | Progress Note ---
DATE: 01/11/2020 SUBJECTIVE: A 74-year-old gentleman postop day 2 from a right total hip replacement. He is doing pretty well. Pain is controlled. No chest pain or shortness of breath. Not feeling dizzy or lightheaded. He has had a little bit of reflux which responded well to the medicine. OBJECTIVE: VITAL SIGNS: Temperature 36.8. Vital signs stable. GENERAL: Shows a pleasant, middle-aged male. He is up at a sink in the bathroom cleaning up this morning. EXTREMITIES: Examination of the right hip reveals the dressing to be clean, dry and intact. Thigh is soft and supple. Hip is located. He is neurologically intact. LABORATORY DATA: Hemoglobin 9.7. Hematocrit 28.1. ASSESSMENT: A 74-year-old gentleman postop day 2 from a right hip replacement 2 days out from a total hip replacement, doing well. Pain is controlled. He is mildly anemic, but chronically anemic and without symptoms. His hemoglobin is stable and actually improved from yesterday. Pain is controlled. He feels comfortable, he will be okay going home. PLAN: 1. DVT prophylaxis including thigh-high TEDs, SCDs, and aspirin twice a day. 2. PT/OT. Weight bear as tolerated. Right total hip protocol. 3. Pain control, doing okay with current pain regimen. 4. Anemia. Will continue iron supplementation. 5. Disposition: Plan to discharge to home with some home health. He feels comfortable and will be okay going home and his son is around to help him.
[2020-01-11] MEDS: LACTOBACILLUS ACIDOPHILUS (FLORANEX) TAB PO SCH (08:43)
[2020-01-11] MEDS: MULTIVITAMIN TAB PO SCH (08:43)
[2020-01-11] MEDS: DOCUSATE SODIUM 100 MG CAP PO SCH (08:43)
[2020-01-11] MEDS: FERROUS GLUCONATE 324 MG TAB PO SCH (08:43)
[2020-01-11] MEDS: ATORVASTATIN 10 MG TAB PO SCH (08:43)
[2020-01-11] MEDS: PANCREAZE (LIPASE 10,500U) CAP PO SCH ×2 (08:44→12:53)
[2020-01-11] MEDS: hydroCHLOROthiazide 25 MG TAB PO SCH (08:44)
[2020-01-11] MEDS: ASCORBIC ACID 500 MG TAB PO SCH (08:44)
[2020-01-11] MEDS: LOSARTAN POTASSIUM 25 MG TAB PO SCH (08:44)
[2020-01-11] MEDS: METOPROLOL SUCC 50MG EXT REL TAB PO SCH (08:44)
[2020-01-11] MEDS: TOCOPHERYL, DL-ALPHA 400 UNITS CAP PO SCH (08:44)
[2020-01-11] MEDS: ASPIRIN 81 MG ECTAB PO SCH (08:44)
[2020-01-11] MEDS: VITAMIN B COMPLEX TAB PO SCH (08:44)
[2020-01-11] MEDS: OMEGA-3 (PURIFIED FISH OIL) 1 GM CAP PO SCH (08:44)
[2020-01-11] MEDS: CHOLECALCIFEROL 1,000 UNITS 25 MCG TAB PO SCH (08:45)
[2020-01-11] MEDS: MAGNESIUM OXIDE 400 MG TAB PO SCH (08:45)
[2020-01-11] MEDS: PSYLLIUM 58.6% POWDER PACKET PO SCH (08:45)
[2020-01-11] MEDS: INSULIN ASPART 100 UNITS/ML 3 ML PEN SC SCH ×2 (08:50→12:53)
[2020-01-11] MEDS ORDERED: INSULIN GLARGINE SOLOSTAR 100 UNITS/ML 3 ML PEN SQ SCH (09:00)
--- NOTE | 2020-01-14 14:46 | Discharge Summary ---
ADMITTING PHYSICIAN AND SURGEON: Dr. Jose Vences. ADMITTING DIAGNOSIS: Right hip degenerative joint disease. SURGERY PERFORMED: Right total hip arthroplasty. SECONDARY DIAGNOSES: Hypertension, sleep apnea, diabetes, gastroesophageal reflux disease, obesity, pancreatic cancer, prostate cancer. CONSULTS: None obtained. HISTORY AND PHYSICAL EXAMINATION: Well documented in the patient's chart. HOSPITAL COURSE: The patient was admitted on 01/09/2020 underwent total hip arthroplasty, tolerated the procedure well. There were no complications. He was transferred to the PACU postoperatively and later to the orthopedic floor for further care. He was given Ancef for antibiotic prophylaxis, YAO stockings, SCDs and aspirin for DVT prophylaxis. Hemoglobin, hematocrit and vital signs were monitored during his hospital stay and remained stable, did not require any blood transfusions. There were no complications. He did receive an iron supplement postoperatively for anemia. By postoperative day 2 he was tolerating a diabetic diet. Pain was controlled with oral pain medicine. He was participating in physical therapy. On postop day 2 he was discharged home, set up with home health services, given printed discharge instructions including new prescriptions for extra strength Tylenol, aspirin, iron supplement and tramadol. Continue his home medications, continue physical therapy, weightbearing as tolerated, YAO stockings, total hip precautions. Follow up approximately 2 weeks postop or sooner if there are any problems or concerns.
== END 2020-01-11 13:44 | disposition home health service (06) | DRG 470 ==
LOC: ASU 04:53 → 3E 08:41